=== PATIENT | male | born 1980 | race Caucasian/White ===

== ENCOUNTER 2020-04-18 13:31 | Inpatient (IN) ==
[2020-04-18 14:16] LABS: Basophils % 0.2 %; Hematocrit 46.8 % (37.5-50.1); Hemoglobin 15.1 g/dL (12.9-16.9); Immature Granulocytes % 0.9 % (0-4); Lymphocytes # 1.1 K/mcL (0.6-4.6); Lymphocytes % 19.6 %; Mean Corpuscular HGB Conc 32.3 g/dL (31.6-35.5); Mean Corpuscular Hemoglobin 28.7 pg (28.0-33.3); Mean Corpuscular Volume 88.8 fL (83.0-100.0); Monocytes # 0.6 K/mcL (0.0-1.3); Monocytes % 10.3 %; Neutrophils # 3.8 K/mcL (1.6-8.9); Platelet Count 171 K/mcL (140-400); Red Blood Count 5.27 M/mcL (4.19-5.50); Red Cell Distribution Width 13.9 % (11.5-14.5); White Blood Count 5.5 K/mcL (4.3-11.1)
[2020-04-18 14:21] LABS: VBG HCO3 32 mEq/L (21-27); VBG PCO2 61 mmHg (41-51); VBG PH 7.33 pH Units (7.32-7.42); VBG PO2 39 mmHg (25-50)
[2020-04-18 14:36] LABS: BUN/Creatinine Ratio 13 (6-26); Blood Urea Nitrogen 12 mg/dL (6-20); Calcium 8.6 mg/dL (8.6-10.3); Carbon Dioxide 29 mEq/L (23-29); Chloride 96 mEq/L (98-107); Glucose 107 mg/dL (70-105); Osmolality,Calculated 274 (280-300); Potassium 3.8 mEq/L (3.5-5.1); Sodium 132 mEq/L (136-145); eGFR For African Americans > 60 (> 60); eGFR For Non-African Americans > 60 (> 60)
[2020-04-18 14:37] LABS: Troponin I 0.03 ng/mL (< 0.04)
[2020-04-18 16:58] LABS: Lactate Dehydrogenase 278 Units/L (140-271)
[2020-04-18 17:17] LABS: Ferritin 394 ng/mL (20-250)
[2020-04-18] MEDS ORDERED: Ondansetron 4 MG/2 ML VIAL IVP PRN (17:35)
[2020-04-18] MEDS ORDERED: Naloxone 0.4 MG/ML INJ IVP PRN (17:35)
[2020-04-18] MEDS ORDERED: Dextrose Gel 15 GM/37.5 ML TUBE PO PRN ×2 (17:37)
[2020-04-18] MEDS ORDERED: *HR* Dextrose 50 % in Water (Vial) 50 ML VIAL IVP PRN (17:37)
[2020-04-18] MEDS ORDERED: D5% in Water 1,000 ML IVC PRN (17:37)
[2020-04-18] MEDS: Dexamethasone 4 MG/ML VIAL IVP SCH (17:55)
[2020-04-18] MEDS: Insulin LISPRO 300 UNITS/3 ML VIAL SUBQ SCH ×2 (18:05→20:02)
[2020-04-18] MEDS: Ipratropium 1 PUFF INHALER IH SCH ×3 (18:11→23:01)
[2020-04-18] MEDS: Acetaminophen 325 MG TABLET PO PRN (18:44)
[2020-04-18] MEDS ORDERED: *HR* HYDROcodone/Acet 5/325 mg TABLET PO ONE (19:09)
[2020-04-19] MEDS: Ipratropium 1 PUFF INHALER IH SCH ×5 (04:21→19:48)
[2020-04-19 06:05] LABS: Alanine Aminotransferase 36 Units/L (7-52); Albumin/Globulin Ratio 1.1 (1.1-2.2); Alkaline Phosphatase 41 Units/L (34-104); Aspartate Amino Transferase 57 Units/L (13-39); BUN/Creatinine Ratio 16 (6-26); Bilirubin,Total 0.4 mg/dL (0.3-1.0); Blood Urea Nitrogen 13 mg/dL (6-20); Calcium 9.2 mg/dL (8.6-10.3); Carbon Dioxide 31 mEq/L (23-29); Chloride 98 mEq/L (98-107); Globulin 3.6 g/dL (2.4-3.5); Glucose 169 mg/dL (70-105); Osmolality,Calculated 286 (280-300); Potassium 4.5 mEq/L (3.5-5.1); Sodium 136 mEq/L (136-145); Total Protein 7.6 g/dL (6.4-8.9); eGFR For African Americans > 60 (> 60); eGFR For Non-African Americans > 60 (> 60)
[2020-04-19] MEDS: *HR* Enoxaparin 40 MG/0.4 ML SYRINGE SQ SCH (06:08)
[2020-04-19 06:42] LABS: Hematocrit 48.4 % (37.5-50.1); Immature Granulocytes % 0.9 % (0-4); Lymphocytes # 0.7 K/mcL (0.6-4.6); Lymphocytes % 13.1 %; Mean Corpuscular HGB Conc 32.2 g/dL (31.6-35.5); Mean Corpuscular Hemoglobin 28.9 pg (28.0-33.3); Mean Platelet Volume 9.2 fL (9.4-12.4); Monocytes # 0.4 K/mcL (0.0-1.3); Monocytes % 6.8 %; Neutrophils # 4.2 K/mcL (1.6-8.9); Platelet Count 165 K/mcL (140-400); Red Cell Distribution Width 13.9 % (11.5-14.5); Segmented Neutrophils % 79.2 %; White Blood Count 5.3 K/mcL (4.3-11.1)
[2020-04-19 06:43] LABS: Hemoglobin 15.6 g/dL (12.9-16.9); Mean Corpuscular Volume 89.6 fL (83.0-100.0)
[2020-04-19] MEDS: Insulin LISPRO 300 UNITS/3 ML VIAL SUBQ SCH ×4 (08:23→20:25)
[2020-04-19] MEDS: Dexamethasone 4 MG/ML VIAL IVP SCH (08:39)
[2020-04-19] MEDS: Benzonatate 100 MG CAPSULE PO PRN ×2 (08:47→15:07)
[2020-04-19] MEDS ORDERED: Furosemide 40 MG/4 ML VIAL IVP ONE (13:41)
[2020-04-19] MEDS: Acetaminophen 325 MG TABLET PO PRN (15:07)
[2020-04-19] MEDS: GuaiFENesin/Codeine Oral Soln 5 ML UDC PO PRN ×2 (15:39→20:20)
[2020-04-19] MEDS: *HR* OxyCODONE/APAP 5/325 TABLET PO PRN ×2 (15:39→21:40)
[2020-04-20] MEDS: Ipratropium 1 PUFF INHALER IH SCH ×7 (00:25→23:31)
[2020-04-20] MEDS: *HR* Enoxaparin 40 MG/0.4 ML SYRINGE SQ SCH ×2 (04:58→17:50)
[2020-04-20] MEDS: Acetaminophen 325 MG TABLET PO PRN (06:25)
[2020-04-20] MEDS ORDERED: *HR* LORazepam 2 MG/ML VIAL IVP ONE ×2 (06:29→15:00)
[2020-04-20] MEDS: GuaiFENesin/Codeine Oral Soln 5 ML UDC PO PRN ×2 (07:05→18:43)
[2020-04-20] MEDS: Budesonide/Formoterol 80/4.5 1 PUFF INH IH SCH (07:39)
[2020-04-20] MEDS: Dexamethasone 4 MG/ML VIAL IVP SCH (07:48)
[2020-04-20] MEDS: Insulin LISPRO 300 UNITS/3 ML VIAL SUBQ SCH ×4 (07:51→20:21)
[2020-04-20] MEDS ORDERED: Dexamethasone 4 MG/ML VIAL IVP SCH (08:02)
[2020-04-20] MEDS: Furosemide 40 MG/4 ML VIAL IVP SCH ×2 (08:54→09:51)
[2020-04-20] MEDS ORDERED: TESTOSTERONE TP SCH (09:00)
[2020-04-20 09:31] LABS: Basophils % 0.1 %; Hematocrit 46.6 % (37.5-50.1); Hemoglobin 15.1 g/dL (12.9-16.9); Immature Granulocytes % 0.5 % (0-4); Lymphocytes # 0.6 K/mcL (0.6-4.6); Lymphocytes % 5.4 %; Mean Corpuscular HGB Conc 32.4 g/dL (31.6-35.5); Mean Corpuscular Hemoglobin 28.7 pg (28.0-33.3); Mean Corpuscular Volume 88.6 fL (83.0-100.0); Mean Platelet Volume 9.1 fL (9.4-12.4); Monocytes # 0.6 K/mcL (0.0-1.3); Platelet Count 217 K/mcL (140-400); Red Blood Count 5.26 M/mcL (4.19-5.50); Red Cell Distribution Width 13.7 % (11.5-14.5)
[2020-04-20 09:37] LABS: Neutrophils # 10.1 K/mcL (1.6-8.9); White Blood Count 11.3 K/mcL (4.3-11.1)
[2020-04-20 09:46] LABS: D-Dimer 830 ng/mLFEU (0-500)
[2020-04-20 09:49] LABS: Fibrinogen 424 mg/dL (169-393)
[2020-04-20 09:50] LABS: Alanine Aminotransferase 60 Units/L (7-52); Albumin 3.6 g/dL (3.5-5.7); Albumin/Globulin Ratio 1.1 (1.1-2.2); Alkaline Phosphatase 32 Units/L (34-104); Aspartate Amino Transferase 88 Units/L (13-39); BUN/Creatinine Ratio 15 (6-26); Bilirubin,Total 0.7 mg/dL (0.3-1.0); Blood Urea Nitrogen 17 mg/dL (6-20); C-Reactive Protein 27 mg/L (Less than 10); Calcium 8.5 mg/dL (8.6-10.3); Carbon Dioxide 31 mEq/L (23-29); Chloride 95 mEq/L (98-107); Globulin 3.3 g/dL (2.4-3.5); Glucose 134 mg/dL (70-105); Osmolality,Calculated 280 (280-300); Potassium 4.2 mEq/L (3.5-5.1); Sodium 133 mEq/L (136-145); Total Protein 6.9 g/dL (6.4-8.9); eGFR For African Americans > 60 (> 60); eGFR For Non-African Americans > 60 (> 60)
[2020-04-20 11:25] LABS: VBG HCO3 29 mEq/L (21-27); VBG PCO2 44 mmHg (41-51); VBG PH 7.44 pH Units (7.32-7.42); VBG PO2 60 mmHg (25-50)
[2020-04-20] MEDS ORDERED: Remdesivir 200 MG in 0.9 % Sodium Chloride 100 ML IVPB ONE (16:00)
[2020-04-20] MEDS ORDERED: Acetaminophen IV 500 MG/50 ML BAG IVPB ONE (20:32)
[2020-04-20] MEDS ORDERED: Dexmedetomidine HCl 400 MCG/100 ML MLS IVC SCH (23:45)
[2020-04-20 23:56] LABS: ABG Base Excess 4 mEq/L (-2 to 3); ABG HCO3 32 mEq/L (21-27); ABG Oxygen Saturation 98 % (95-98); ABG PCO2 56 mmHg (35-45); ABG PH 7.36 pH Units (7.32-7.45); ABG PO2 119 mmHg (85-104); ABG TCO2 34 mEq/L (20-26)
[2020-04-20] MEDS ORDERED: Furosemide 40 MG/4 ML VIAL IVP ONE (23:56)
[2020-04-21] MEDS: Dexmedetomidine HCl 400 MCG/100 ML MLS IVC SCH ×10 (04:14→22:09)
[2020-04-21] MEDS: Ipratropium 1 PUFF INHALER IH SCH ×6 (04:23→23:31)
[2020-04-21] MEDS ORDERED: Morphine Sulfate 2 MG/ML SYRINGE IVP ONE (04:59)
[2020-04-21] MEDS: *HR* Enoxaparin 40 MG/0.4 ML SYRINGE SQ SCH ×2 (05:07→17:00)
[2020-04-21] MEDS: Acetaminophen 325 MG TABLET PO PRN (05:08)
[2020-04-21 06:35] LABS: Basophils % 0.1 %; Hematocrit 46.4 % (37.5-50.1); Hemoglobin 15.3 g/dL (12.9-16.9); Immature Granulocytes % 0.5 % (0-4); Lymphocytes # 0.8 K/mcL (0.6-4.6); Lymphocytes % 7.8 %; Mean Corpuscular Hemoglobin 29.5 pg (28.0-33.3); Mean Corpuscular Volume 89.6 fL (83.0-100.0); Mean Platelet Volume 9.2 fL (9.4-12.4); Monocytes # 0.7 K/mcL (0.0-1.3); Neutrophils # 8.3 K/mcL (1.6-8.9); Platelet Count 221 K/mcL (140-400); Red Blood Count 5.18 M/mcL (4.19-5.50); Red Cell Distribution Width 13.8 % (11.5-14.5); Segmented Neutrophils % 84.6 %; White Blood Count 9.9 K/mcL (4.3-11.1)
[2020-04-21 06:48] LABS: Fibrinogen 559 mg/dL (169-393)
[2020-04-21 06:49] LABS: D-Dimer 623 ng/mLFEU (0-500)
[2020-04-21 06:55] LABS: Alanine Aminotransferase 52 Units/L (7-52); Albumin 3.7 g/dL (3.5-5.7); Albumin/Globulin Ratio 1.1 (1.1-2.2); Alkaline Phosphatase 31 Units/L (34-104); Aspartate Amino Transferase 60 Units/L (13-39); BUN/Creatinine Ratio 27 (6-26); Bilirubin,Total 0.6 mg/dL (0.3-1.0); Blood Urea Nitrogen 25 mg/dL (6-20); Calcium 8.6 mg/dL (8.6-10.3); Carbon Dioxide 29 mEq/L (23-29); Chloride 96 mEq/L (98-107); Globulin 3.3 g/dL (2.4-3.5); Glucose 136 mg/dL (70-105); Osmolality,Calculated 284 (280-300); Potassium 4.4 mEq/L (3.5-5.1); Sodium 134 mEq/L (136-145); eGFR For African Americans > 60 (> 60); eGFR For Non-African Americans > 60 (> 60)
[2020-04-21] MEDS: Insulin LISPRO 300 UNITS/3 ML VIAL SUBQ SCH ×4 (07:37→20:39)
[2020-04-21] MEDS: Budesonide/Formoterol 80/4.5 1 PUFF INH IH SCH (07:44)
[2020-04-21] MEDS: Furosemide 40 MG/4 ML VIAL IVP SCH (08:17)
[2020-04-21] MEDS: Cholecalciferol (D-3) 1,000 UNIT (25MCG) TABLET PO SCH (08:18)
[2020-04-21] MEDS ORDERED: Dexamethasone Sodium Phos/PF 10 MG/ML VIAL IVP SCH (09:00)
[2020-04-21] MEDS ORDERED: Dexamethasone 4 MG/ML VIAL IVP SCH (09:00)
[2020-04-21 09:41] LABS: C-Reactive Protein 81 mg/L (Less than 10)
[2020-04-21] MEDS: Acetaminophen IV 1,000 MG/100 ML BAG IVPB SCH ×3 (11:46→23:01)
[2020-04-21 13:50] LABS: Bilirubin,Urine Negative (Negative); Blood,Urine Small (Negative); Clarity,Urine Clear (Clear); Color,Urine Yellow (Yellow); Glucose,Urine (UA) Normal (Normal); Ketones,Urine Negative (Negative); Leukocyte Esterase,Urine Negative (Negative); Mucus,Urine Few per lpf (None-Few); Nitrite,Urine Negative (Negative); Protein,Urine 100 mg/dL (Neg-Trace); RBC,Urine 0-3 per hpf (0-3); Squamous Epithelial Cell,Urine Few per hpf (None-Few); Urobilinogen,Urine Normal (Normal); WBC,Urine 0-3 per hpf (0-3)
[2020-04-21] MEDS: Remdesivir 100 MG in 0.9 % Sodium Chloride 100 ML IVPB SCH (16:20)
[2020-04-21] MEDS: GuaiFENesin/Codeine Oral Soln 5 ML UDC PO PRN (20:40)
[2020-04-22] MEDS: Dexmedetomidine HCl 400 MCG/100 ML MLS IVC SCH ×7 (00:56→21:28)
[2020-04-22] MEDS: Ipratropium 1 PUFF INHALER IH SCH ×5 (03:47→20:41)
[2020-04-22 04:14] LABS: ABG Base Excess 5 mEq/L (-2 to 3); ABG HCO3 31 mEq/L (21-27); ABG Oxygen Saturation 96 % (95-98); ABG PCO2 50 mmHg (35-45); ABG PH 7.41 pH Units (7.32-7.45); ABG PO2 80 mmHg (85-104); ABG TCO2 33 mEq/L (20-26)
[2020-04-22] MEDS: Acetaminophen IV 1,000 MG/100 ML BAG IVPB SCH (05:19)
[2020-04-22] MEDS: *HR* Enoxaparin 40 MG/0.4 ML SYRINGE SQ SCH ×2 (05:19→19:13)
[2020-04-22 06:43] LABS: D-Dimer 975 ng/mLFEU (0-500); Fibrinogen 672 mg/dL (169-393)
[2020-04-22] MEDS ORDERED: Acetaminophen 325 MG TABLET PO PRN (07:19)
[2020-04-22] MEDS: Budesonide/Formoterol 80/4.5 1 PUFF INH IH SCH (08:11)
[2020-04-22] MEDS: Furosemide 40 MG/4 ML VIAL IVP SCH (09:03)
[2020-04-22] MEDS: Dexamethasone Sodium Phos/PF 10 MG/ML VIAL IVP SCH (09:03)
[2020-04-22] MEDS: Cholecalciferol (D-3) 1,000 UNIT (25MCG) TABLET PO SCH (09:03)
[2020-04-22 09:51] LABS: Basophils % 0.1 %; Hematocrit 48.1 % (37.5-50.1); Hemoglobin 15.6 g/dL (12.9-16.9); Immature Granulocytes % 0.6 % (0-4); Lymphocytes # 0.7 K/mcL (0.6-4.6); Lymphocytes % 7.9 %; Mean Corpuscular HGB Conc 32.4 g/dL (31.6-35.5); Mean Corpuscular Hemoglobin 29.3 pg (28.0-33.3); Mean Corpuscular Volume 90.4 fL (83.0-100.0); Mean Platelet Volume 9.1 fL (9.4-12.4); Monocytes # 0.6 K/mcL (0.0-1.3); Monocytes % 7.3 %; Neutrophils # 7.4 K/mcL (1.6-8.9); Platelet Count 217 K/mcL (140-400); Red Blood Count 5.32 M/mcL (4.19-5.50); Red Cell Distribution Width 13.3 % (11.5-14.5); Segmented Neutrophils % 84.1 %; White Blood Count 8.8 K/mcL (4.3-11.1)
[2020-04-22] MEDS: Insulin LISPRO 300 UNITS/3 ML VIAL SUBQ SCH ×4 (10:37→20:37)
[2020-04-22 11:09] LABS: Alanine Aminotransferase 36 Units/L (7-52); Albumin 3.5 g/dL (3.5-5.7); Albumin/Globulin Ratio 1.1 (1.1-2.2); Alkaline Phosphatase 30 Units/L (34-104); Aspartate Amino Transferase 35 Units/L (13-39); BUN/Creatinine Ratio 32 (6-26); Bilirubin,Direct 0.2 mg/dL (0.0-0.2); Bilirubin,Indirect 0.4 mg/dL (0.0-1.0); Bilirubin,Total 0.6 mg/dL (0.3-1.0); Blood Urea Nitrogen 23 mg/dL (6-20); C-Reactive Protein < 5 mg/L (Less than 10); Calcium 8.5 mg/dL (8.6-10.3); Carbon Dioxide 30 mEq/L (23-29); Chloride 91 mEq/L (98-107); Globulin 3.3 g/dL (2.4-3.5); Glucose 154 mg/dL (70-105); Osmolality,Calculated 273 (280-300); Potassium 4.4 mEq/L (3.5-5.1); Sodium 128 mEq/L (136-145); Total Protein 6.8 g/dL (6.4-8.9); eGFR For African Americans > 60 (> 60); eGFR For Non-African Americans > 60 (> 60)
[2020-04-22] MEDS: GuaiFENesin/Codeine Oral Soln 5 ML UDC PO PRN ×2 (13:41→19:58)
[2020-04-22] MEDS: Remdesivir 100 MG in 0.9 % Sodium Chloride 100 ML IVPB SCH (16:11)
[2020-04-23] MEDS: Ipratropium 1 PUFF INHALER IH SCH ×6 (00:03→20:09)
[2020-04-23] MEDS: Dexmedetomidine HCl 400 MCG/100 ML MLS IVC SCH ×10 (00:25→23:31)
[2020-04-23 04:05] LABS: VBG Ionized Calcium 1.02 mmol/L (1.15-1.35)
[2020-04-23 04:08] LABS: Basophils % 0.2 %; Hematocrit 46.8 % (37.5-50.1); Hemoglobin 15.4 g/dL (12.9-16.9); Immature Granulocytes % 0.7 % (0-4); Lymphocytes # 0.8 K/mcL (0.6-4.6); Lymphocytes % 6.3 %; Mean Corpuscular HGB Conc 32.9 g/dL (31.6-35.5); Mean Corpuscular Hemoglobin 28.8 pg (28.0-33.3); Mean Corpuscular Volume 87.6 fL (83.0-100.0); Mean Platelet Volume 9.3 fL (9.4-12.4); Monocytes # 0.8 K/mcL (0.0-1.3); Monocytes % 6.2 %; Platelet Count 296 K/mcL (140-400); Red Blood Count 5.34 M/mcL (4.19-5.50); Red Cell Distribution Width 13.1 % (11.5-14.5); Segmented Neutrophils % 86.6 %; White Blood Count 12.7 K/mcL (4.3-11.1)
[2020-04-23 04:19] LABS: INR 1.3; Prothrombin Time 14.6 Seconds (9.4-12.1)
[2020-04-23 04:22] LABS: Activated Partial Thrombo Time 27.3 Seconds (26.0-36.0)
[2020-04-23 04:27] LABS: Alanine Aminotransferase 37 Units/L (7-52); Albumin 3.2 g/dL (3.5-5.7); Albumin/Globulin Ratio 0.9 (1.1-2.2); Alkaline Phosphatase 30 Units/L (34-104); Aspartate Amino Transferase 36 Units/L (13-39); BUN/Creatinine Ratio 24 (6-26); Bilirubin,Total 0.8 mg/dL (0.3-1.0); Blood Urea Nitrogen 23 mg/dL (6-20); Calcium 8.4 mg/dL (8.6-10.3); Carbon Dioxide 34 mEq/L (23-29); Chloride 89 mEq/L (98-107); Globulin 3.4 g/dL (2.4-3.5); Glucose 204 mg/dL (70-105); Magnesium 2.6 mg/dL (1.6-2.6); Osmolality,Calculated 278 (280-300); Phosphorous 2.9 mg/dL (2.7-4.5); Potassium 3.9 mEq/L (3.5-5.1); Sodium 129 mEq/L (136-145); Total Protein 6.6 g/dL (6.4-8.9); eGFR For African Americans > 60 (> 60); eGFR For Non-African Americans > 60 (> 60)
[2020-04-23] MEDS: *HR* Enoxaparin 40 MG/0.4 ML SYRINGE SQ SCH ×2 (04:54→17:53)
[2020-04-23] MEDS: Benzonatate 100 MG CAPSULE PO PRN (05:16)
[2020-04-23] MEDS: Calcium Gluconate 1gm/50mL 1 GM/50 ML BAG IVPB SCH ×2 (05:34→06:09)
[2020-04-23 06:02] LABS: ABG Base Excess 6 mEq/L (-2 to 3); ABG HCO3 31 mEq/L (21-27); ABG Oxygen Saturation 90 % (95-98); ABG PCO2 44 mmHg (35-45); ABG PH 7.46 pH Units (7.32-7.45); ABG PO2 56 mmHg (85-104); ABG TCO2 32 mEq/L (20-26); Blood Gas Modality 12LPM
[2020-04-23] MEDS: Dexamethasone Sodium Phos/PF 10 MG/ML VIAL IVP SCH (07:56)
[2020-04-23] MEDS: Cholecalciferol (D-3) 1,000 UNIT (25MCG) TABLET PO SCH (07:57)
[2020-04-23] MEDS: Furosemide 40 MG/4 ML VIAL IVP SCH (07:57)
[2020-04-23] MEDS: Budesonide/Formoterol 80/4.5 1 PUFF INH IH SCH (08:12)
[2020-04-23] MEDS: Insulin LISPRO 300 UNITS/3 ML VIAL SUBQ SCH ×4 (08:48→19:45)
[2020-04-23] MEDS: *HR* OxyCODONE/APAP 5/325 TABLET PO PRN (09:30)
[2020-04-23 16:25] LABS: Creatinine,Urine 151 mg/dL; Sodium, Urine 17.8 mEq/L
[2020-04-23] MEDS: Remdesivir 100 MG in 0.9 % Sodium Chloride 100 ML IVPB SCH (17:53)
[2020-04-24] MEDS: Ipratropium 1 PUFF INHALER IH SCH ×7 (00:13→23:48)
[2020-04-24] MEDS: Dexmedetomidine HCl 400 MCG/100 ML MLS IVC SCH ×9 (01:21→22:23)
[2020-04-24 04:43] LABS: Hematocrit 49.2 % (37.5-50.1); Mean Corpuscular HGB Conc 32.5 g/dL (31.6-35.5); Mean Corpuscular Hemoglobin 28.4 pg (28.0-33.3); Mean Corpuscular Volume 87.4 fL (83.0-100.0); Mean Platelet Volume 9.4 fL (9.4-12.4); Platelet Count 308 K/mcL (140-400); Red Blood Count 5.63 M/mcL (4.19-5.50); Red Cell Distribution Width 13.2 % (11.5-14.5); White Blood Count 12.5 K/mcL (4.3-11.1)
[2020-04-24 04:55] LABS: VBG Ionized Calcium 1.06 mmol/L (1.15-1.35)
[2020-04-24] MEDS: *HR* Enoxaparin 40 MG/0.4 ML SYRINGE SQ SCH ×2 (05:15→17:03)
[2020-04-24 05:19] LABS: BUN/Creatinine Ratio 25 (6-26); Blood Urea Nitrogen 26 mg/dL (6-20); Calcium 8.7 mg/dL (8.6-10.3); Carbon Dioxide 35 mEq/L (23-29); Chloride 90 mEq/L (98-107); Glucose 254 mg/dL (70-105); Magnesium 2.7 mg/dL (1.6-2.6); Osmolality,Calculated 283 (280-300); Phosphorous 3.4 mg/dL (2.7-4.5); Potassium 4.5 mEq/L (3.5-5.1); Sodium 130 mEq/L (136-145); eGFR For African Americans > 60 (> 60); eGFR For Non-African Americans > 60 (> 60)
[2020-04-24] MEDS: Cholecalciferol (D-3) 1,000 UNIT (25MCG) TABLET PO SCH (07:07)
[2020-04-24] MEDS: Dexamethasone Sodium Phos/PF 10 MG/ML VIAL IVP SCH (07:07)
[2020-04-24] MEDS: Furosemide 40 MG/4 ML VIAL IVP SCH (07:08)
[2020-04-24] MEDS: Insulin LISPRO 300 UNITS/3 ML VIAL SUBQ SCH ×3 (07:20→16:38)
[2020-04-24] MEDS: Budesonide/Formoterol 80/4.5 1 PUFF INH IH SCH (08:19)
[2020-04-24] MEDS: Sennosides/Docusate Sodium TABLET PO SCH (11:20)
[2020-04-24] MEDS ORDERED: hydrOXYzine pamoate 25 MG CAPSULE PO PRN (14:26)
[2020-04-24] MEDS: Remdesivir 100 MG in 0.9 % Sodium Chloride 100 ML IVPB SCH (15:36)
[2020-04-24] MEDS ORDERED: Insulin LISPRO 300 UNITS/3 ML VIAL SUBQ SCH (21:00)
[2020-04-25] MEDS: Dexmedetomidine HCl 400 MCG/100 ML MLS IVC SCH ×6 (01:12→16:08)
[2020-04-25 03:22] LABS: Hematocrit 51.1 % (37.5-50.1); Hemoglobin 16.7 g/dL (12.9-16.9); Mean Corpuscular HGB Conc 32.7 g/dL (31.6-35.5); Mean Corpuscular Hemoglobin 28.5 pg (28.0-33.3); Mean Corpuscular Volume 87.4 fL (83.0-100.0); Mean Platelet Volume 9.7 fL (9.4-12.4); Platelet Count 311 K/mcL (140-400); Red Blood Count 5.85 M/mcL (4.19-5.50); Red Cell Distribution Width 13.1 % (11.5-14.5); White Blood Count 14.7 K/mcL (4.3-11.1)
[2020-04-25 03:38] LABS: BUN/Creatinine Ratio 31 (6-26); Blood Urea Nitrogen 32 mg/dL (6-20); Calcium 8.9 mg/dL (8.6-10.3); Carbon Dioxide 36 mEq/L (23-29); Chloride 89 mEq/L (98-107); Glucose 214 mg/dL (70-105); Magnesium 2.7 mg/dL (1.6-2.6); Osmolality,Calculated 283 (280-300); Phosphorous 3.8 mg/dL (2.7-4.5); Potassium 4.4 mEq/L (3.5-5.1); Sodium 130 mEq/L (136-145); eGFR For African Americans > 60 (> 60); eGFR For Non-African Americans > 60 (> 60)
[2020-04-25] MEDS: Ipratropium 1 PUFF INHALER IH SCH ×4 (04:07→15:55)
[2020-04-25 04:08] LABS: Albumin 3.4 g/dL (3.5-5.7); Albumin/Globulin Ratio 1.1 (1.1-2.2); Bilirubin,Direct 0.4 mg/dL (0.0-0.2); Bilirubin,Indirect 0.7 mg/dL (0.0-1.0); Bilirubin,Total 1.1 mg/dL (0.3-1.0); Globulin 3.2 g/dL (2.4-3.5); Total Protein 6.6 g/dL (6.4-8.9)
[2020-04-25] MEDS: *HR* Enoxaparin 40 MG/0.4 ML SYRINGE SQ SCH (05:17)
[2020-04-25] MEDS: Budesonide/Formoterol 80/4.5 1 PUFF INH IH SCH (07:57)
[2020-04-25] MEDS: Dexamethasone Sodium Phos/PF 10 MG/ML VIAL IVP SCH (08:25)
[2020-04-25] MEDS: Cholecalciferol (D-3) 1,000 UNIT (25MCG) TABLET PO SCH (08:25)
[2020-04-25] MEDS: Sennosides/Docusate Sodium TABLET PO SCH (08:25)
[2020-04-25] MEDS: Furosemide 40 MG/4 ML VIAL IVP SCH (08:26)
[2020-04-25] MEDS: Insulin LISPRO 300 UNITS/3 ML VIAL SUBQ SCH ×2 (09:29→15:30)
[2020-04-25] MEDS ORDERED: MOM Conc 10 ML UD.LIQ PO SCH (12:00)
[2020-04-25] MEDS ORDERED: *HR* LORazepam 2 MG/ML VIAL IVP PRN (12:59)
[2020-04-25] MEDS ORDERED: *HR* Metoprolol 5 MG/5 ML VIAL IVP ONE ×2 (13:50→13:53)
[2020-04-25] MEDS ORDERED: Furosemide 40 MG/4 ML VIAL IVP ONE (14:00)
[2020-04-25 14:08] LABS: ABG Base Excess 3 mEq/L (-2 to 3); ABG HCO3 30 mEq/L (21-27); ABG Oxygen Saturation 97 % (95-98); ABG PCO2 51 mmHg (35-45); ABG PH 7.38 pH Units (7.32-7.45); ABG PO2 98 mmHg (85-104); ABG TCO2 31 mEq/L (20-26); Blood Gas Modality avaps; Blood Gas VT 500 cc
[2020-04-25] MEDS ORDERED: Milk and Molasses Enema 200 ML RC ONE (14:13)
[2020-04-25] MEDS ORDERED: *HR* Heparin 5,000 UNIT/ML VIAL IVP ONE (14:15)
[2020-04-25] MEDS ORDERED: *HR* Heparin 5,000 UNIT/ML VIAL IVP PRN ×2 (14:15)
[2020-04-25] MEDS ORDERED: Heparin 25,000UNIT/250ML 1/2NS 25,000 UNIT/250 ML IV.SOLN IVC SCH (14:15)
[2020-04-25] MEDS ORDERED: Ondansetron 4 MG/2 ML VIAL ONE (14:20)
[2020-04-25] MEDS ORDERED: Norepinephrine 4 MG/254 ML IV.SOLN IVC SCH (14:30)
[2020-04-25 18:53] VITALS: BP 95/49
[2020-04-25] MEDS ORDERED: Sennosides/Docusate Sodium TABLET PO SCH (21:00)
== END 2020-04-25 18:30 | disposition expired | DRG 177 ==
LOC: EMEROOARM 13:31 → 2NENU 13:31 → SUATTDRO 16:43 → 2NENU 17:53 → ICNU 04-21 04:14
PROVIDERS: ADMIT Family Medicine; ATTEND Student in an Organized Health Care Education/Training Program